=== PATIENT | female | born 2000 | race African-American/Black ===

== ENCOUNTER 2020-12-02 18:02 | Emergency (ER) ==
[~2020-12-02] VITALS: Ht 167.6 cm; Wt 113.4 kg
[2020-12-02 18:03] VITALS: BP 141/89
== END 2020-12-02 20:24 | disposition left against medical advice (07) ==
LOC: M ED 18:02
DX: Z53.29 Procedure and treatment not carried out because of patient's decision for other reasons (principal)

== ENCOUNTER 2021-06-28 13:08 | Emergency (ER) | payer OTHER ==
[~2021-06-28] VITALS: Ht 167.6 cm; Wt 112.4 kg
[2021-06-28] MEDS ORDERED: TOPI100T9 (13:25)
[2021-06-28] MEDS ORDERED: SUMA50TA2 (13:25)
[2021-06-28] MEDS ORDERED: B-2100TA (13:25)
[2021-06-28] MEDS ORDERED: SERT50TA29 (13:25)
[2021-06-28 16:43] LABS: BASO % 0.6 % (0.0-1.0); EOS % 0.3 % (0.0-3.0); HEMATOCRIT 35.9 % (36.0-47.0); HEMOGLOBIN 11.6 g/dl (12.0-15.5); LYMPH # 0.6 10^3/uL (1.5-5.0); LYMPH % 18.7 % (24.0-44.0); MEAN CORPUSCULAR HEMOGLOBIN 29.6 pg (27.0-33.0); MEAN CORPUSCULAR HGB CONC 32.3 g/dl (32.0-36.5); MEAN CORPUSCULAR VOLUME 91.6 fl (80.0-96.0); MONO # 0.3 10^3/uL (0.0-0.8); MONO % 10.1 % (2.0-8.0); NEUTROPHILS # 2.3 10^3/uL (1.5-8.5); PLATELET COUNT, AUTOMATED 297 10^3/uL (150-450); RED BLOOD COUNT 3.92 10^6/uL (4.00-5.40); WHITE BLOOD COUNT 3.3 10^3/uL (4.0-10.0)
[2021-06-28 17:11] LABS: ALBUMIN 3.7 GM/DL (3.2-5.2); ALT/SGPT 30 U/L (12-78); BILIRUBIN,DIRECT < 0.1 MG/DL (0.0-0.2); BILIRUBIN,TOTAL 0.2 MG/DL (0.2-1.0); BLOOD UREA NITROGEN 14 MG/DL (7-18); CALCIUM LEVEL 9.4 MG/DL (8.5-10.1); CARBON DIOXIDE LEVEL 26 MEQ/L (21-32); CHLORIDE LEVEL 113 MEQ/L (98-107); CREATININE FOR GFR 0.75 MG/DL (0.55-1.30); FREE T4 0.77 NG/DL (0.76-1.46); GLOMERULAR FILTRATION RATE > 60.0 (>60); GLUCOSE, FASTING 88 MG/DL (70-100); SODIUM LEVEL 142 MEQ/L (136-145); TOTAL PROTEIN 7.9 GM/DL (6.4-8.2)
[2021-06-28] MEDS ORDERED: ONDANSETRON 4MG ORAL DISINTEGRATING TAB PO ONE (18:35)
[2021-06-28] MEDS ORDERED: ONDA4TAB6 PO (18:39)
[2021-06-28 18:47] VITALS: BP 139/85
[2021-06-30] MEDS ORDERED: ONDA4TAB6 PO (18:26)
== END 2021-06-28 18:51 | disposition home or self-care (01) ==
LOC: M ED 13:08
DX: R11.2 Nausea with vomiting, unspecified (principal); D64.9 Anemia, unspecified; D70.9 Neutropenia, unspecified; G43.909 Migraine, unspecified, not intractable, without status migrainosus; Z88.8 Allergy status to other drugs, medicaments and biological substances; Z79.899 Other long term (current) drug therapy

== ENCOUNTER 2021-11-16 17:34 | Emergency (ER) | payer OTHER ==
[~2021-11-16] VITALS: Ht 167.6 cm; Wt 113.7 kg
[~2021-11-16 17:34] MED LIST: B-2100TA; ONDA4TAB6 PO; SERT50TA29; SUMA50TA2; TOPI100T9
[2021-11-16 17:35] VITALS: BP 132/90
[2021-11-16] MEDS ORDERED: FERR325T18 (17:43)
[2021-11-16] MEDS ORDERED: TOPIRAMATE (TopAMAX) 25 MG TAB PO ONE (18:35)
[2021-11-16] MEDS ORDERED: ONDANSETRON 4MG ORAL DISINTEGRATING TAB PO ONE (18:35)
[2021-11-16] MEDS ORDERED: ONDA4TAB6 PO (19:35)
[2021-11-16] MEDS ORDERED: TOPI25TA10 PO (19:35)
== END 2021-11-16 19:51 | disposition home or self-care (01) ==
LOC: M ED 17:34
DX: G43.909 Migraine, unspecified, not intractable, without status migrainosus (principal); I10 Essential (primary) hypertension; J45.909 Unspecified asthma, uncomplicated; F32.A Depression, unspecified; F41.9 Anxiety disorder, unspecified; F43.10 Post-traumatic stress disorder, unspecified; R56.9 Unspecified convulsions; D25.9 Leiomyoma of uterus, unspecified; Z88.8 Allergy status to other drugs, medicaments and biological substances; Z79.899 Other long term (current) drug therapy

== ENCOUNTER 2022-04-09 22:42 | Emergency (ER) | payer OTHER ==
[~2022-04-09] VITALS: Ht 167.6 cm; Wt 115.0 kg
[~2022-04-09 22:42] MED LIST changes: +FERR325T18; +TOPI25TA10 PO
[2022-04-10] MEDS ORDERED: ONDANSETRON 4MG ORAL DISINTEGRATING TAB PO ONE (02:15)
[2022-04-10 02:27] LABS: APPEARANCE, URINE MANUAL HAZY (CLEAR); BILIRUBIN, URINE MANUAL NEGATIVE (NEGATIVE); COLOR, URINE MANUAL YELLOW (YELLOW); GLUCOSE, URINE (UA) MANUAL NEGATIVE (NEGATIVE); KETONE, URINE MANUAL NEGATIVE (NEGATIVE); NITRITE, URINE MANUAL POSITIVE (NEGATIVE); UROBILINOGEN, URINE MANUAL NORMAL (NORMAL)
[2022-04-10 02:28] LABS: BLOOD URINE MANUAL NEGATIVE (NEGATIVE); PROTEIN, URINE MANUAL TRACE mg/dL (NEGATIVE)
[2022-04-10 02:29] LABS: LEUKOCYTE ESTERASE, URINE MAN TRACE (NEGATIVE)
[2022-04-10 02:32] LABS: BACTERIA, URINE LARGE AMOUNT; BASO % 0.2 % (0.0-1.0); EOS % 0.8 % (0.0-3.0); HEMATOCRIT 33.8 % (36.0-47.0); HEMOGLOBIN 11.1 g/dl (12.0-15.5); HYALINE CAST, URINE NONE SEEN /lpf (0-1); LYMPH # 2.3 10^3/uL (1.5-5.0); MEAN CORPUSCULAR HGB CONC 32.8 g/dl (32.0-36.5); MEAN CORPUSCULAR VOLUME 91.4 fl (80.0-96.0); MONO # 0.5 10^3/uL (0.0-0.8); MONO % 9.6 % (2.0-8.0); NEUTROPHILS # 2.3 10^3/uL (1.5-8.5); PLATELET COUNT, AUTOMATED 302 10^3/uL (150-450); RBC, URINE 0-1 /hpf (0-3); SQUAMOUS EPITHELIAL CELL URINE SMALL AMOUNT /hpf (SMALL AMT); WHITE BLOOD COUNT 5.1 10^3/uL (4.0-10.0)
[2022-04-10 02:33] LABS: MUCUS, URINE SMALL AMOUNT (NEGATIVE)
[2022-04-10 03:05] LABS: BLOOD UREA NITROGEN 15 MG/DL (9-23); CALCIUM LEVEL 9.1 MG/DL (8.5-10.1); CARBON DIOXIDE LEVEL 25 MMOL/L (20-31); CHLORIDE LEVEL 103 MMOL/L (98-107); CREATININE FOR GFR 0.57 MG/DL (0.55-1.30); GLOMERULAR FILTRATION RATE > 60.0 (>60); GLUCOSE, FASTING 91 MG/DL (60-100); POTASSIUM SERUM 4.1 MMOL/L (3.5-5.1); SODIUM LEVEL 135 MMOL/L (136-145)
[2022-04-10 03:09] LABS: HCG, SERUM QUALITATIVE POSITIVE (NEGATIVE)
[2022-04-10] MEDS ORDERED: ONDANSETRON 4MG 2ML VIAL IV ONE (03:55)
[2022-04-10] MEDS ORDERED: NS 1,000 ML IV ONE (03:55)
[2022-04-10 06:04] VITALS: BP 126/69
== END 2022-04-10 06:06 | disposition home or self-care (01) ==
LOC: M ED 22:42
DX: O21.0 Mild hyperemesis gravidarum (principal); Z3A.11 11 weeks gestation of pregnancy; Z79.899 Other long term (current) drug therapy; Z88.6 Allergy status to analgesic agent
CPT/HCPCS: 36415; 80048; 81000; 84703; 85025; 96374; 99284; J2405